=== PATIENT | female | born 1995 | race African-American/Black ===

== ENCOUNTER 2025-09-25 02:03 | Emergency (ER) | payer SELFPAY ==
[2025-09-25 02:06] VITALS: BP 124/81
[2025-09-25 02:30] VITALS: BP 117/76
[2025-09-25 02:46] VITALS: BMI 36.3
[2025-09-25] MEDS: ZOFRAN 4 MG IV (02:51)
[2025-09-25] MEDS: PEPCID 20 MG IV (02:51)
[2025-09-25] MEDS: NSS (PRESERVATIVE FREE) 8 ML IV (02:52)
[2025-09-25] MEDS: LR 500 IV (02:52)
--- NOTE | 2025-09-25 02:59 | ED.GENMED ---
History of Present Illness
General
Chief Complaint: Abdominal Pain
Source: patient
Exam Limitations: none
Time Seen by Provider: 09/25/25 02:18
Nursing documentation reviewed up to this point in time: agreed with
History of Present Illness
History of Present Illness:
30-year-old female G4, P1 6 weeks presents to the ER today with concerns of epigastric abdominal pain as well as nausea. She reports that she did episodes of vomiting at home as well but that has since resided. The pain started around 7
days ago. She has never had pain similar to this before. She describes the pain as a constant ache located in the upper abdomen spanning across and describes that is persisting all day sometimes it becomes sharp and worse. She reports that this
feels different than her typical reflux and gastritis. There is no radiation of the pain to the chest. She denies shortness of breath. She denies any radiation of the pain to the back. She reports that she consumes Posta which she was not able
to tolerate without vomiting. She also states that she has had intermittent vaginal bleeding which she noticed when wiping from the vagina. She denies vaginal pain. She denies pelvic pain. She denies urinary frequency or burning with urination.
She reports that the bleeding has since subsided. She has appointment with [facility] GROUP ACCOUNT DIRECTOR on October 11 but currently follows with [facility] where she had an ultrasound performed which was unremarkable. She denies any fevers or
chills.
Review of Systems
Review of Systems
All Other Systems: ROS reviewed and negative except as documented in HPI and ROS
Phy Exam
Physical Exam
Physical Exam:
General: Patient is well appearing and in no acute distress; non-toxic
Skin: Warm and dry, no rashes or lesions
Head: Normocephalic, atraumatic
Eyes: Sclera non-icteric. EOMs intact.
Cardiac: Regular rate and rhythm, no murmurs
Peripheral Vascular: No lower extremity swelling or edema
Pulm: Normal respiratory effort, no wheezes, rales, or rhonchi
Abdomen: RUQ tenderness to palpation, no rebound tenderness no guarding
Neuro: CN II-XII intact, no focal neurologic deficits.
Psychiatric: Appropriate mood and affect.
Course
Orders/Labs/Results
Orders:
Orders
09/25/25 02:36
Ondansetron Injectable [Zofran] 4 mg IV NOW STA
US Abdomen Complete/Upper Urgent
Comment:
Reason For Exam: epigastric pain
US W Transvaginal Urgent
Reason For Exam: vaginal bleeding
09/25/25 02:38
Lactated Ringers [Lr] 500 ml IV BOLUS
09/25/25 02:40
Famotidine [Pepcid] 20 mg IV NOW STA
09/25/25 02:44
Beta HCG Quantitative Urgent
Is this a screen?: No
Complete Blood Count/With Diff Urgent
Comprehensive Metabolic Panel Urgent
Lipase Urgent
09/25/25 02:47
0.9% Sodium Chloride [Nss (Preservative Free)] 8 ml IV NOW STA
09/25/25 03:05
Type+Screen Urgent
Abnormal Lab Results
09/25/25
02:44
WBC 11.9 H 10^3/uL
(4.8-10.8)
MCHC 32.4 L g/dL
(33.0-37.0)
Absolute Neuts (auto) 7.6 H 10^3/uL
(1.4-6.5)
Absolute Monos (auto) 0.8 H 10^3/uL
(0.1-0.6)
BUN 6 L mg/dl
(7-17)
Glucose 103 H mg/dl
(70-99)
09/25/25 02:44
09/25/25 02:44
Vital Signs
Initial and Last Documented VS:
Initial Vital Signs
Temp Pulse BP Pulse Ox
97.8 F 80 124/81 99
09/25/25 02:06 09/25/25 02:06 09/25/25 02:06 09/25/25 02:06
Last Documented Vital Signs
Temp Pulse Resp BP Pulse Ox
97.8 F 79 12 108/71 100
09/25/25 02:06 09/25/25 04:45 09/25/25 04:45 09/25/25 04:05 09/25/25 04:45
MDM/Problems Addressed
Differential Diagnosis Includes:
ddx include gastritis, GERD, musculoskeletal sprain/strain, biliary colic, cholecystitis, implantation bleeding
MDM/Problems Addressed:
30-year-old female G4, P1 6 weeks presents to the ER today with concerns of epigastric abdominal pain as well as nausea. This started a few days ago. She reports that the pain is different than her typical GERD symptoms. On physical
exam, she is well-appearing no acute distress. She is afebrile. She she does have generalized epigastric tenderness to palpation notable in the right upper quadrant. Labs reviewed, CMP unremarkable normal total bilirubin normal AST and ALT.
Lipase normal. B+, no indication for RhoGAM. She went for ultrasound which showed cholelithiasis without cholecystitis. Normal common bile duct. Normal viable IUP with no evidence of ovarian torsion or adnexal mass. Suspect pain related to
biliary colic. On reassessment, patient reports that she currently does not feel the pain since after ultrasound and she states that she feels much better. She reports that Zofran helped a lot with her nausea. Will send B6 for nausea to patient's
pharmacy. Discussed follow-up with her OB as scheduled. Discussed strict return precautions. Patient stable for discharge.
*Pulse Oximetry
SaO2: 99
Oxygen Mode of Delivery: Room air
Patient hypoxic: no
*Critical Care Note
Total Time (30-74mins, 75-104mins- exclusive of procedures): Not Applicable
ED Attending Note
-
Portions of this chart may have been created with voice recognition software.� Occasional wrong word or��sound alike� substitutions may have occurred due to the inherent limitations of voice recognition software.
Discharge Plan
Departure
Patient Disposition: Home (Routine Discharge)
Date of Disposition: 09/25/25
Time of Disposition: 04:40
Patient with high blood pressure during this ER visit?: Yes
Condition: Good
Discharge Problem:
Biliary colic
Instructions: Gallstones (DC), BLOOD PRESSURE
Prescriptions:
New
pyridoxine (vitamin B6) 25 mg tablet
25 mg PO BID Qty: 14 0RF
Referrals:
Anjel Bailey MD [Active, Surgical] - Call in 1-3 days for appt
UNKNOWN - PT DOES,NOT KNOW [Family Provider]
Stand Alone Forms: Return to Work
Activity Restrictions/Additional Instructions:
At your OB appointment coming up in September, please let them know that you are seen in the emergency department and diagnosed with gallstones.
Today, your blood work was unremarkable. You can take Tylenol as needed for pain. For nausea, pyridoxine has been sent to your pharmacy. You can take one tablet up to 3 times a day as needed.
Please continue to monitor your symptoms.
PLEASE RETURN TO THE ER SHOULD YOU DEVELOP FEVER, YELLOWING OF THE SKIN OR THE EYES, ANY ACUTE WORSENING OF YOUR SYMPTOMS, INTRACTABLE NAUSEA OR VOMITING, BURNING WITH URINATION, URINARY FREQUENCY, CHEST PAIN, SHORTNESS OF BREATH, OR ANY OTHER SIGNS
OR SYMPTOMS RECENTLY.
Interventions
Interventions:
*Risk Screen - Suicide Last Done: 09/25/25 02:17
*General Assessment Last Done: 09/25/25 02:15
*Neglect/Abuse Screening Last Done: 09/25/25 02:17
*ED- Fall Risk Assessment Last Done: 09/25/25 02:17
*ED COVID-19 Vaccine History Last Done: 09/25/25 02:15
*ED Influenza Vaccine History Last Done: 09/25/25 02:15
*Nursing Disposition Last Done: 09/25/25 04:53
JG-Hasjpo-Hvgikpvrqu Assessment Last Done: 09/25/25 03:13
Discharge Date and Time
Discharge Date/Time: 09/25/25 04:54
Print Language: JAPANESE
[2025-09-25 03:00] VITALS: BP 102/71
[2025-09-25 03:08] LABS: Hematocrit 42.3 % (37.0-47.0); Hemoglobin 13.7 g/dL (12.0-16.0); Mean Corp Hgb Conc. 32.4 g/dL (33.0-37.0); Mean Corpuscular Volume 86.3 fL (81.0-99.0); Nucleated Red Blood Cells % 0 %; Platelet Count 307 10^3/uL (130-400); Red Cell Dist. Width 13.8 % (11.5-14.5)
[2025-09-25 03:28] LABS: ALT (SGPT) 15 U/L (0-35); AST (SGOT) 20 U/L (14-36); Albumin 3.8 g/dl (3.5-5.0); Alkaline Phosphatase 49 U/L (38-126); Blood Urea Nitrogen 6 mg/dl (7-17); Calcium 9.2 mg/dl (8.4-10.2); Carbon Dioxide 24 mmol/L (22-30); Chloride 106 mmol/L (98-107); Estimated Creatinine Clearance > 125 ml/min; Glucose 103 mg/dl (70-99); Lipase 84 U/L (23-300); Potassium 3.9 mmol/L (3.5-5.1); Sodium 136 mmol/L (135-145); Total Protein 6.8 g/dl (6.3-8.2); eGFR > 60.00
[2025-09-25 04:05] VITALS: BP 108/71
[2025-09-25 04:20] LABS: Beta HCG Quantitative 102790.00 mIU/ml
== END 2025-09-25 04:54 | disposition home or self-care (01) ==
LOC: EMR 02:03
PROVIDERS: Physician Assistant; EMERGENCY PHYSICIAN Student in an Organized Health Care Education/Training Program
DX: O99.611 Diseases of the digestive system complicating pregnancy, first trimester (principal); K80.20 Calculus of gallbladder without cholecystitis without obstruction; Z3A.01 Less than 8 weeks gestation of pregnancy
CPT/HCPCS: 96374; 96375; 96361; 99284; 76700; 76801; 76817; 80053; 83690; 84702; 85025; 86850; 86900; 86901

== ENCOUNTER 2025-09-26 18:36 | Day surgery (SDC) | payer MEDICARE, SELFPAY ==
[2025-09-26 14:30] VITALS: BP 119/74
--- NOTE | 2025-09-26 15:24 | ED.GENMED ---
History of Present Illness
General
Chief Complaint: Abdominal Symptoms
Source: patient
Time Seen by Provider: 09/26/25 15:08
History of Present Illness
History of Present Illness:
30-year-old female presents to the emergency room for evaluation of epigastric pain, nausea vomiting. Patient is 7 weeks . She was seen in the emergency room approximately 36 hours ago for similar symptoms. At that time she had labs,
ultrasounds which showed normal IUP, no ovarian pathology, gallstones without cholecystitis. Patient also was feeling better after IV fluids and Zofran. She was discharged with a presumed diagnosis of biliary colic. Pain returned this morning.
She has been taking Tylenol without improvement. She also has persistent nausea and vomiting. Patient's been taking B6 for her nausea. She has also been using sour candies and peppermints to help control her nausea. These have not been very
successful. Patient states she has become very uncomfortable.
Phy Exam
Physical Exam
Physical Exam:
General: Awake, Alert, Oriented X3. No acute distress.
Vitals: unremarkable
Head: Atraumatic
Eyes: Pupils equal, EOMI
Throat: Airway intact, no exudates, mildly dry mucosa
Neck: Trachea midline
Lungs: Clear and equal b/l
Heart: Regular rate, no murmurs
Abd: Soft, mild epigastric tenderness to palpation,, No pulsatile mass
Neuro: Nonfocal
Skin: Warm, dry, no rash
Extremities: pulses equal b/l, no edema
Course
Orders/Labs/Results
Orders:
Orders
09/26/25 15:16
Complete Blood Count/With Diff Urgent
Comprehensive Metabolic Panel Urgent
Lipase Urgent
09/26/25 15:23
Famotidine [Pepcid] 20 mg IV NOW STA
Lactated Ringers [Lr] 1,000 ml IV BOLUS
Mag Hydrox/Al Hydrox/Simeth [Maalox] 30 ml Phenobarb/Hyoscy/Atropine/Scop [] 10 ml Viscous Lidocaine 2% [Xylocaine Viscous Cup] 10 ml PO NOW
Ondansetron Injectable [Zofran] 4 mg IV NOW STA
09/26/25 16:53
Mag Hydrox/Al Hydrox/Simeth [Maalox] 30 ml .ROUTE .STK-MED ONE
Phenobarb/Hyoscy/Atropine/Scop [] 10 ml .ROUTE .STK-MED ONE
Viscous Lidocaine 2% [Xylocaine Viscous Cup] 15 ml .ROUTE .STK-MED ONE
09/26/25 18:26
Admit/Transfer Patient As Directed
Co-Sign Provider:
Level of Care: Observation services
Assign to:: Medical/Surgical
Physician / Group: Ganga Gonzales
Diagnosis: acute biliary colic; intractable abdominal pain/N/V
PRN Pain Medication Management As Directed
May give lesser potent ordered pain med per pt: Yes
preference::
Protocol:: Medication orders for pain may be administered in a
manner that supports deferring to patient preference
when the pt is:
- Requesting an ordered lesser potent pain medication.
Least to most potent pain medications are defined
as: acetaminophen < NSAID < tramadol < opioids
(morphine, oxycodone, hydromorphone).
- Requesting a lesser dose of the same medication IF
ORDERED.
- Requesting a less intrusive route of administration
if both routes are prescribed by the provider (PO <
IV).
09/26/25 18:27
Code Status As Directed
Resuscitation Status: Full Code
Abnormal Lab Results
09/26/25
15:16
WBC 12.2 H 10^3/uL
(4.8-10.8)
Absolute Neuts (auto) 7.1 H 10^3/uL
(1.4-6.5)
Absolute Lymphs (auto) 3.9 H 10^3/uL
(1.2-3.4)
Absolute Monos (auto) 1.0 H 10^3/uL
(0.1-0.6)
Sodium 134 L mmol/L
(135-145)
BUN 5 L mg/dl
(7-17)
Total Bilirubin 0.1 L mg/dl
(0.2-1.3)
09/26/25 15:16
09/26/25 15:16
Vital Signs
Initial and Last Documented VS:
Initial Vital Signs
Temp Pulse Resp BP Pulse Ox
99.0 F 81 18 119/74 97
09/26/25 14:30 09/26/25 14:30 09/26/25 14:30 09/26/25 14:30 09/26/25 14:30
Last Documented Vital Signs
Temp Pulse Resp BP Pulse Ox
99.0 F 85 20 107/74 100
09/26/25 14:30 09/26/25 17:08 09/26/25 17:08 09/26/25 17:08 09/26/25 17:08
MDM/Problems Addressed
Differential Diagnosis Includes:
Gastritis, biliary colic, pancreatitis
MDM/Problems Addressed:
Patient presents with abdominal pain particular in the epigastric region. Treated initially for gastritis with Pepcid, Zofran and IV fluids. She had improvement of symptoms initially but then her pain quickly returned. Reviewed patient's
ultrasound report from yesterday. She does have gallstones without evidence of cholecystitis. Patient does not feel comfortable being discharged given the level pain. Discussed with Dr. Gonzales for general surgery who came and evaluated the
patient. He will hospitalize the patient for biliary colic potential with possible definitive management
*Pulse Oximetry
SaO2: 97
Oxygen Mode of Delivery: Room air
Patient hypoxic: no
*Critical Care Note
Total Time (30-74mins, 75-104mins- exclusive of procedures): Not Applicable
ED Attending Note
-
Portions of this chart may have been created with voice recognition software.� Occasional wrong word or��sound alike� substitutions may have occurred due to the inherent limitations of voice recognition software.
Discharge Plan
Departure
Patient Disposition: Admit
Date of Disposition: 09/26/25
Time of Disposition: 18:29
Presentation/result/management discussed w/ accepting MD/DO: Dr. Gonzales
Patient with high blood pressure during this ER visit?: No
Condition: Fair
Discharge Problem:
Abdominal pain, Cholelithiasis
Interventions
Interventions:
*Risk Screen - Suicide Last Done: 09/26/25 14:30
*General Assessment Last Done: 09/26/25 14:30
*Neglect/Abuse Screening Last Done: 09/26/25 14:30
*ED COVID-19 Vaccine History Last Done: 09/26/25 14:30
*ED Influenza Vaccine History Last Done: 09/26/25 14:30
VC-Lyidrp-Jyegkfzjhg Assessment Last Done: 09/26/25 15:14
[2025-09-26 15:29] LABS: Hematocrit 42.5 % (37.0-47.0); Hemoglobin 14.1 g/dL (12.0-16.0); Mean Corp Hgb Conc. 33.2 g/dL (33.0-37.0); Mean Corpuscular Volume 85.2 fL (81.0-99.0); Nucleated Red Blood Cells % 0 %; Platelet Count 308 10^3/uL (130-400); Red Cell Dist. Width 13.9 % (11.5-14.5)
[2025-09-26] MEDS: LR 1000 IV (15:35)
[2025-09-26] MEDS: ZOFRAN 4 MG IV ×2 (15:36→22:01)
[2025-09-26] MEDS: PEPCID 20 MG IV (15:36)
[2025-09-26 15:44] LABS: ALT (SGPT) 26 U/L (0-35); AST (SGOT) 32 U/L (14-36); Albumin 4.0 g/dl (3.5-5.0); Alkaline Phosphatase 47 U/L (38-126); Blood Urea Nitrogen 5 mg/dl (7-17); Calcium 9.4 mg/dl (8.4-10.2); Carbon Dioxide 24 mmol/L (22-30); Chloride 102 mmol/L (98-107); Glucose 94 mg/dl (70-99); Lipase 125 U/L (23-300); Potassium 3.7 mmol/L (3.5-5.1); Sodium 134 mmol/L (135-145); Total Protein 7.2 g/dl (6.3-8.2); eGFR > 60.00
[2025-09-26] MEDS: MAALOX 50 PO (16:56)
[2025-09-26 17:08] VITALS: BP 107/74
--- NOTE | 2025-09-26 18:17 | HPS.HSE ---
Family Physician
-
Family Physician: NOT KNOW UNKNOWN - PT DOES
Chief Complaint
-
Abdominal pain, nausea vomiting
History of Present Illness
Patient is a 30-year-old female 7 weeks experiencing intermittent postprandial epigastric abdominal pain with nausea and vomiting. She recalls similar episodes in the past prior to her current but she thought it was due to gas
pains. Her symptoms have continued to increase in severity and frequency particularly over the past week where she has had exacerbation with essentially any p.o. intake. The abdominal pain is in the epigastric region and radiates to the right
upper quadrant and right back. Depending on the severity of pain she will have intermittent nausea vomiting and anorexia.
She was seen and evaluated a little over 24 hours ago and had enough improvement that she was discharged but due to the return of pain she presented again for emergency department evaluation.
Medical History
Past Medical History
Past Medical History: Reports None (Patient denies any significant past medical history)
Past Surgical History: Reports Other (Liposuction)
Social History
Alcohol: None
Drug: None
Living: With Family
Employment: Employed
Family History
Family History: Not pertinent
Allergies / Home Medications
Allergies reflects when Allergies were last updated in [employer].
Home Medications with original date entered in [employer]
Allergy/Medication List:
Allergies
Allergy/AdvReac Type Severity Reaction Status Date / Time
iodine Allergy Severe Tongue Verified 09/26/25 14:33
Swelling
�Medication �Instructions �Recorded �Confirmed �Type
pyridoxine (vitamin B6) 25 mg 25 mg PO BID #14 tabs 09/25/25 Rx
tablet
famotidine 40 mg tablet (Pepcid) 40 mg PO BID #60 tabs 09/26/25 Rx
ondansetron 4 mg disintegrating 4 mg PO Q8H PRN nausea and 09/26/25 Rx
tablet vomiting #20 tabs
Review of Systems
-
History Source: Patient
A 12 point ROS was completed and negative except as noted: Yes
Physical Exam
Vital Signs
Vital Signs
Temp Pulse Resp BP Pulse Ox
99.0 F 85 20 107/74 100
09/26/25 14:30 09/26/25 17:08 09/26/25 17:08 09/26/25 17:08 09/26/25 17:08
Physical Exam
General: Well Developed, Well Nourished, No Apparent Distress, Comfortable and Conversant
HEENT: NormoCephalic, Anicteric, Moist mucous membranes and Atraumatic
Respiratory: Non Labored Respirations
Cardiac: Regular Rhythm
GI: Soft, Non Distended and Tender (Tenderness to palpation in epigastrium and to the right of midline with localized voluntary guarding.)
Skin: Warm
Neuro: AO x 3
Psych: Calm and Intact Judgment/Insight
Laboratory Results
-
09/26/25 15:16
09/26/25 15:16
Laboratory Results
Total Bilirubin 0.1 mg/dl (0.2-1.3) L 09/26/25 15:16
AST 32 U/L (14-36) 09/26/25 15:16
ALT 26 U/L (0-35) 09/26/25 15:16
Alkaline Phosphatase 47 U/L (38-126) 09/26/25 15:16
Lipase 125 U/L (23-300) 09/26/25 15:16
Data Reviewed
-
Ultrasound: Image Personally Visualized and interpreted (Abdominal ultrasound 09/25/2005: Multiple gallstones within the gallbladder lumen. No wall thickening or pericholecystic fluid. Negative sonographic Arcos's. No biliary ductal dilation.
Common bile duct 4 mm)
Impression/Plan
-
IMPRESSION: 30-year-old female intractable abdominal pain secondary to acute biliary colic with resultant anorexia and recurrent nausea vomiting. She has never experienced symptoms like this in the past with her prior pregnancies. Does not appear
to be GERD/gastritis. LFTs all within normal limits as well as lipase. Obstetric ultrasound shows IUP of gestational age 7 weeks.
Reviewed with patient treatment options which would include nonoperative management particularly during the first trimester with overnight admission, IV fluid hydration and supportive care to see if her acute colic improves with a trial of bowel
rest. Alternatively given the severity of her symptoms and frequency of recurrence limiting her dietary intake we discussed indications for consideration of cholecystectomy understanding that general anesthesia and surgery during the first
trimester is of higher risk than the second trimester. After discussions patient clearly advocates for pursuing cholecystectomy at this time.
Laparoscopic cholecystectomy was reviewed in detail with the patient.
PLAN: Patient will be admitted to the medical surgical floors
Okay for clear liquids then n.p.o. after midnight as she has been added onto the OR schedule for tomorrow 09/27/2025
Repeat labs tomorrow a.m.
Supportive care with analgesics/antiemetics as needed.
[2025-09-26 20:30] VITALS: BP 112/65; BMI 33.1
[2025-09-26] MEDS: MORPHINE SULFATE 2 MG IV (20:54)
[2025-09-26] MEDS: NSS 1000 IV (21:02)
--- NOTE | 2025-09-26 22:41 | PTCARENOTE ---
Pt arrived to unit via stretcher. Pt walked from stretcher to bed. Pt oriented to room. Pt AAOx3, VSS. Call conteh within reach, plan of care ongoing.
[2025-09-26 22:50] VITALS: BP 100/58
[2025-09-27] VITALS (11 sets, daily range): BP systolic 94–114; BP diastolic 51–72; BMI 33.1
[2025-09-27] MEDS: NSS 1000 IV ×3 (05:09→22:16)
[2025-09-27 07:13] LABS: Hematocrit 39.9 % (37.0-47.0); Hemoglobin 12.7 g/dL (12.0-16.0); Mean Corp Hgb Conc. 31.8 g/dL (33.0-37.0); Mean Corpuscular Volume 86.9 fL (81.0-99.0); Platelet Count 283 10^3/uL (130-400); Red Cell Dist. Width 14.1 % (11.5-14.5)
[2025-09-27 07:45] LABS: ALT (SGPT) 20 U/L (0-35); AST (SGOT) 21 U/L (14-36); Albumin 3.2 g/dl (3.5-5.0); Alkaline Phosphatase 43 U/L (38-126); Blood Urea Nitrogen 3 mg/dl (7-17); Calcium 8.8 mg/dl (8.4-10.2); Carbon Dioxide 24 mmol/L (22-30); Chloride 106 mmol/L (98-107); Estimated Creatinine Clearance 111 ml/min; Glucose 84 mg/dl (70-99); Potassium 4.1 mmol/L (3.5-5.1); Sodium 135 mmol/L (135-145); Total Protein 6.1 g/dl (6.3-8.2); eGFR > 60.00
[2025-09-27] MEDS: MORPHINE SULFATE 2 MG IV (08:40)
--- NOTE | 2025-09-27 13:06 | CM ---
Patient seen at bedside
IA completed
OBS status-form explained & signed
CM left message with Kamala ALLEN
patient states she has [employer] through [employer]
spoke with Annalise in admissions & also gave Annalise patient SS #
patient for OR today
Lives at home with her and 2 children (08/28)states she is currently
PLOF: Independent
Denies DME
Denies VN/Rehab
PCP: [facility]
Pharmacy: [facility], [facility], [place]
PLAN: Home, no needs when stable
[2025-09-27] MEDS: ZOFRAN 4 MG IV ×2 (15:24→19:15)
--- NOTE | 2025-09-27 17:33 | W.SUR.PREOP ---
Pre-Operative Surgical Note
-
I have examined this patient prior to the performance of the scheduled procedure.
The patient's condition is unchanged from the time of the current History and
Physical and the patient is able to undergo the scheduled procedure.
Laparoscopic cholecystectomy was reviewed in detail including operative technique utilizing diagrams and alternative management options. The potential benefits and risks of the procedure were reviewed in detail, including but not limited to
infectious or wound healing complications, bleeding, bile leak, injury to biliary tree, iatrogenic injury to surrounding viscera and post cholecystectomy syndrome. Reviewed the typical postoperative recovery.
Any of the patient's concerns or questions were fully addressed and informed consent was obtained.
--- NOTE | 2025-09-27 18:23 | W.IMMPOSTOP ---
Addendum entered and electronically signed by Ganga Gonzales MD 09/27/25 20:40:
#[id number]
Original Note:
Surgical Immed Post Op Note
-
Primary Surgeon: Ganga Gonzales MD
Assisting Surgeon: Cesar Ramos
Pre-op Diagnosis: Symptomatic cholelithiasis, acute biliary colic
Post-op Diagnosis: Symptomatic cholelithiasis, acute biliary colic
Procedure Performed: Laparoscopic cholecystectomy
Anesthesia Type: GETA +0.25% Marcaine
Specimen / Cultures: Gallbladder/none
Estimated Blood Loss: 4 mL
Complications: None immediate
Operative Findings: Physiologically distended gallbladder with stones. Cystic duct and artery individually identified and controlled with clips after obtaining critical view of safety. Single posterior artery branch controlled with clip.
Gallbladder extracted at epigastric 12 mm trocar site without dilation of the fascia.
Routine postoperative care, advance diet as tolerated.
[2025-09-27] MEDS: DILAUDID 0.25 MG IV (19:11)
[2025-09-27] MEDS: DILAUDID 0.5 MG IV (19:21)
--- NOTE | 2025-09-27 20:10 | PTCARENOTE ---
Pt arrived from PACU. Pt AOX3 drowsy with abdominal pain 07/07. VSS, pt previously in room so already oriented to unit. Call conteh w/i reach. Will review chart and follow plan of care.
[2025-09-27] MEDS: MORPHINE SULFATE 4 MG IV ×2 (20:31→23:24)
[2025-09-28 03:00] VITALS: BP 105/63
[2025-09-28] MEDS: MORPHINE SULFATE 4 MG IV ×2 (05:31→22:16)
[2025-09-28 07:00] VITALS: BP 102/65
[2025-09-28] MEDS: MORPHINE SULFATE 2 MG IV (09:04)
[2025-09-28] MEDS: ZOFRAN 4 MG IV ×3 (09:08→22:14)
[2025-09-28 11:00] VITALS: BP 109/72
[2025-09-28] MEDS: NSS 1000 IV (11:10)
--- NOTE | 2025-09-28 12:26 | W.PN.GS2 ---
Today's Communication / Plan
-
-- LFD
-- Pain control: Tylenol and Oxycodone
-- IVF
-- Dispo pending dietary tolerance
Assessment / Plan
-
Patient is a 30 yo F 7 weeks POD#1 s/p laparoscopic cholecystectomy
AVSS
No repeat labs
Recovering well overall. Postop issues with nausea and abdominal discomfort. Difficult to assess symptoms of nausea in the setting of . Plan to advance to a low-fat diet. Discussed pain medication options, will trial Tylenol and
Oxycodone as needed (avoid NSAIDs in first trimester).
-- LFD
-- Pain control: Tylenol and Oxycodone
-- IVF
-- Abx: None further needed
-- OOB/ambulate
-- Dispo pending dietary tolerance
Subjective Data
-
Date of Service: September 28, 2025
Reports nausea and some abdominal soreness. No episodes of vomiting. Minimal ambulation. Voiding. No fevers.
Objective Data
-
Intake and Output
09/27/25 09/28/25 09/29/25
06:59 06:59 05:59
Intake Total 1979 / 1979
Output Total 30 / 30
Balance 1950 / 1950
Intake:
Oral fluids 480 / 480
IV fluids (Total) 1500 / 1500
Normosol 300 / 300
Output:
Emesis 30 / 30
Other:
How many times incontinent 1
Number of approximated MODERATE 2
amounts of urine
Vital Signs
Temp Pulse Resp BP Pulse Ox
97.7 F 82 19 109/72 98
09/28/25 11:00 09/28/25 11:00 09/28/25 11:00 09/28/25 11:00 09/28/25 11:00
Lab Results
09/27/25 06:39
09/27/25 06:39
Calcium 8.8 mg/dl (8.4-10.2) 09/27/25 06:39
Total Bilirubin 0.2 mg/dl (0.2-1.3) 09/27/25 06:39
AST 21 U/L (14-36) 09/27/25 06:39
ALT 20 U/L (0-35) 09/27/25 06:39
Alkaline Phosphatase 43 U/L (38-126) 09/27/25 06:39
Total Protein 6.1 g/dl (6.3-8.2) L 09/27/25 06:39
Albumin 3.2 g/dl (3.5-5.0) L 09/27/25 06:39
Physical Exam
-
Gen: NAD
Abd: soft, tender in epigastrium, ND, non-peritoneal, incisions c/d/i - no erythema, ecchymosis or drainage
Patient has a hall catheter: No
Patient has a central line: No
[2025-09-28 15:00] VITALS: BP 101/61
[2025-09-28] MEDS: ROXICODONE 5 MG PO (17:37)
[2025-09-28 23:00] VITALS: BP 114/68
[2025-09-29 07:13] VITALS: BP 103/63
[2025-09-29] MEDS: ZOFRAN 4 MG IV (08:38)
[2025-09-29] MEDS: COLACE 100 MG PO (08:38)
--- NOTE | 2025-09-29 09:35 | W.PN.GS2 ---
Today's Communication / Plan
-
-- DC today
Assessment / Plan
-
Patient is a 30 yo F 7 weeks POD#2 s/p laparoscopic cholecystectomy
AVSS
No repeat labs
Recovering well overall. DC today.
-- LFD
-- Pain control: Tylenol and Oxycodone
-- DC IVF
-- Abx: None further needed
-- OOB/ambulate
-- DC today
Subjective Data
-
Date of Service: September 29, 2025
Feels improved, ready for discharge. Mild discomfort. No significant nausea or vomiting. Afebrile.
Objective Data
-
Intake and Output
09/28/25 09/29/25 09/30/25
06:59 05:59 06:59
Intake Total 1979 / 1979 1680 / 1680
Output Total 30 / 30
Balance 1950 / 1949 1680 / 1680
Intake:
Oral fluids 480 / 480 1680 / 1680
IV fluids (Total) 1500 / 1500
Normosol 300 / 300
Output:
Emesis 30 / 30
Other:
How many times incontinent 1
Number of approximated MODERATE 2 2
amounts of urine
Vital Signs
Temp Pulse Resp BP Pulse Ox
97.9 F 70 17 103/63 99
09/29/25 07:13 09/29/25 07:13 09/29/25 07:13 09/29/25 07:13 09/29/25 08:43
Lab Results
09/27/25 06:39
09/27/25 06:39
Calcium 8.8 mg/dl (8.4-10.2) 09/27/25 06:39
Total Bilirubin 0.2 mg/dl (0.2-1.3) 09/27/25 06:39
AST 21 U/L (14-36) 09/27/25 06:39
ALT 20 U/L (0-35) 09/27/25 06:39
Alkaline Phosphatase 43 U/L (38-126) 09/27/25 06:39
Total Protein 6.1 g/dl (6.3-8.2) L 09/27/25 06:39
Albumin 3.2 g/dl (3.5-5.0) L 09/27/25 06:39
Physical Exam
-
Gen: NAD
Abd: soft, mild tenderness, ND, non-peritoneal, incisions c/d/i - no erythema, ecchymosis or drainage
Patient has a hall catheter: No
Patient has a central line: No
--- NOTE | 2025-09-29 09:51 | W.DS.TRANS ---
Addendum entered and electronically signed by KRISTIN Mckinnon 09/30/25 09:50:
dictated #[id number]
Original Note:
DC Summary - [employer]
-
Discharge Instructions:
Discharge Diagnosis/Procedures Symptomatic cholelithiasis. Laparoscopic
cholecystectomy
Diet As tolerated,Low Fat
Additional Diets If you have loose stools after surgery, switch
to a low fat diet and avoid greasy, oily foods
or high fat dairy
Activity No strenuous activity
Additional Activity Do not lift over 20lbs for the next 2-3 weeks
Driving Restrictions No driving for 24 hours
Bathing Restrictions OK to Shower
Wound Care Allow glue will flake off incisions on its own
over the next 1-2 weeks
Instructions:
Stand-Alone Forms:
Changes to Home Medications: No
Discharge Medications:
DC Medications w/original date entered in [facility]
famotidine 40 mg tablet (Pepcid) 40 mg PO BID #60 tabs 09/26/25
ondansetron 4 mg disintegrating tablet 4 mg PO Q8H PRN nausea and vomiting #20 tabs 09/26/25
pyridoxine (vitamin B6) 25 mg tablet 25 mg PO BID Supplement 09/27/25
acetaminophen 325 mg tablet 650 mg (2 x 325 mg) PO Q4HPRN PRN mild pain #1 tab 09/29/25
oxycodone 5 mg tablet 5 mg PO Q4HPRN PRN breakthrough/severe pain #5 tabs 09/29/25
Home Medication Changes
Pending Results: No
--- NOTE | 2025-09-29 10:16 | CM ---
Patient will d/c home today
No CM needs at this time
[2025-09-29 11:38] VITALS: BP 101/66
== END 2025-09-29 12:00 | disposition home or self-care (01) ==
LOC: SDS 18:36
PROVIDERS: ATTENDING PHYSICIAN Surgery; EMERGENCY PHYSICIAN Emergency Medicine
DX: O26.611 Liver and biliary tract disorders in pregnancy, first trimester (principal); K80.10 Calculus of gallbladder with chronic cholecystitis without obstruction; O99.611 Diseases of the digestive system complicating pregnancy, first trimester; Z3A.01 Less than 8 weeks gestation of pregnancy; O26.891 Other specified pregnancy related conditions, first trimester; O21.9 Vomiting of pregnancy, unspecified
CPT/HCPCS: 47562; 80053; 83690; 85025; 85027; 88304; 88342; 96374; 96375; 99285; 99406